=== PATIENT | female | born 1980 | race African-American/Black ===

== ENCOUNTER 2022-03-16 19:34 | Emergency (ER) | payer OTHER, SELFPAY ==
--- NOTE | ~2022-03-16 | XR_ITS ---
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 RESULT: Lines, tubes, and devices: Cholecystectomy clips. Lungs and pleura: Low lung volumes, with crowding, particularly in the lateral view. No focal consol idation, effusion, or pneumothorax. Cardiomediastinal silhouette: Unremarkable. Other: No acute osseous or upper abdominal finding. IMPRESSION: No acute cardiopulmonary process. Reviewed, dictated and finalized at location K. 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
[2022-03-16 17:37] VITALS: BP 144/84; PULSE 86; RESP 16; TEMP 36.6; O2SAT 98
--- NOTE | 2022-03-16 17:37 | ECG_ITS ---
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
[2022-03-16 17:56] LABS: Basophils Percent Auto 0.5 % (0.2-1.2); Eosinophils Absolute Auto 0.1 K/mm3 (0-0.3); Eosinophils Percent Auto 1.7 % (0-4.4); Hematocrit 38.4 % (37.0-47.0); Hemoglobin 11.8 g/dL (12.0-15.0); Immature Granulocyte Absolute 0.01 K/mm3 (0.00-0.031); Immature Granulocyte Percent A 0.1 % (0-0.5); Lymphocytes Absolute Auto 3.51 K/mm3 (0.9-3.2); Mean Corpuscular HGB Conc 30.7 g/dl (32-36); Mean Corpuscular Hemoglobin 27.9 pg (26-34); Mean Corpuscular Volume 90.8 fl (80-100); Mean Platelet Volume 10.7 fl (7.4-10.4); Monocytes Absolute Auto 0.5 K/mm3 (0.1-0.6); Monocytes Percent Auto 5.4 % (2.6-8.5); Neutrophils Absolute Auto 4.2 K/mm3 (1.3-6.7); Neutrophils Percent Auto 50.3 % (45.5-73.1); Platelet Count Result 320 k/mm3 (150-375); Red Blood Count 4.23 M/mm3 (4.2-5.4); Red Cell Distribution Width 14.9 % (11.5-14.5); White Blood Count 8.4 K/mm3 (4.5-10.0)
[2022-03-16 18:07] LABS: Alanine Aminotransferase 22 U/L (6-35); Albumin Level 4.6 g/dL (3.5-5.1); Alkaline Phosphatase 96 U/L (38-126); Anion Gap 8 mmol/L (8-16); Aspartate Amino Transferase 27 U/L (14-36); Bilirubin,Total 0.3 mg/dL (0.2-1.3); Blood Urea Nitrogen 10 mg/dL (7-17); Calcium 9.1 mg/dL (8.4-10.2); Carbon Dioxide 27 mmol/L (22-30); Chloride 103 mmol/L (98-107); Estimated CRCL calculation 84 ml/min; Estimated Glomerular Filt Rate > 60; Glucose 98 mg/dL (65-110); Lipase 69 U/L (23-300); Sodium 138 mmol/L (137-145)
[2022-03-16 18:09] LABS: INR 1.1; Prothrombin Time 13.4 Seconds (11.1-14.7)
[2022-03-16 18:10] LABS: Partial Thromboplastin Time 27.2 SECONDS (22.3-36.8)
[2022-03-16 18:19] LABS: Troponin I < 0.012 ng/mL (0.000-0.034)
--- NOTE | 2022-03-16 18:48 | ED.CHESTPAIN ---
HPI - Chest Pain General Chief Complaint: Chest Pain Stated Complaint: CP History of Present Illness HPI narrative: Patient is a 41-year-old female with a history of hypertension presenting with chest pain. Patient states that for the last several days she has had left-sided chest pain. States that it became worse today while she was at work. Associated with shortness of breath. States that it hurts worse to take a big breath. States she has never had pain like this before. No lightheadedness or leg swelling. No fevers or chills, cough, headache, abdominal pain, nausea or vomiting, back pain. Related Data Allergies Allergy/AdvReac Type Severity Reaction Status Date / Time No Known Allergies Allergy Verified 03/16/22 18:55 Review of Systems Review of Systems: All systems reviewed & are unremarkable except as noted in HPI and below Exam Narrative: GENERAL: Well-appearing, well-nourished, and in no acute distress. HEAD: Normocephalic, atraumatic. EYES: PERRLA and EOMI. ENT: Nares clear, no rhinorrhea or epistaxis. Mucous membranes moist. NECK: Supple. CHEST: Clear to auscultation. No respiratory distress. HEART: Regular rate and rhythm. No murmur heard. + Left chest wall tenderness ABDOMEN: Soft, nontender, nondistended, normal active bowel sounds. EXTREMITIES: Normal range of motion. No edema. SKIN: Warm, dry, no rash. NEURO: No focal deficits. Alert and oriented x3. PSYCH: Normal mood and affect. Course Vital Signs Vital signs: Vital Signs Temperature 97.8 F 03/16/22 17:37 Pulse Rate 86 03/16/22 17:37 Respiratory Rate 16 03/16/22 17:37 Blood Pressure 144/84 H 03/16/22 17:37 Pulse Oximetry 98 03/16/22 17:37 Oxygen Delivery Room Air 03/16/22 17:37 Temperature 98.4 F 03/16/22 21:20 Pulse Rate 83 03/16/22 21:20 Respiratory Rate 16 03/16/22 21:20 Blood Pressure 140/95 H 03/16/22 21:20 Pulse Oximetry 100 03/16/22 21:20 Oxygen Delivery Room Air 03/16/22 17:37 MDM - Chest Pain MDM Narrative Medical decision making narrative: Patient is a 41-year-old female presenting with chest pain for several days. Patient is hypertensive, otherwise vitals are within normal limits. EKG per my interpretation shows normal sinus rhythm, left axis deviation, no ST elevations or depressions. No priors for comparison. Blood work is unremarkable. Troponins undetectable by 2. Chest x-ray without acute abnormalities per my review. D-dimer is within normal limits. Patient reports improvement in her symptoms following IV Tylenol and Toradol. Given the improvement in her symptoms following anti-inflammatories and the reproducibility of the pain, I suspect musculoskeletal pain versus costochondritis. Discussed the reassuring work-up. Advised that she follow-up with her PCP. Appropriate return precautions given. Patient voiced understanding and is agreeable with plan. Discharged in stable condition. Differential Diagnosis Differential diagnosis: Likely pneumothorax, stable angina, unstable angina pectoris, atypical chest pain, st elevation myocardial infarction, costochondritis and chest pain Lab Data 03/16/22 17:49 03/16/22 17:49 Labs: Lab Results 03/16/22 03/16/22 03/16/22 Range/Units 17:49 17:49 17:49 WBC 8.4 (4.5-10.0) K/mm3 RBC 4.23 (4.2-5.4) M/mm3 Hgb 11.8 L (12.0-15.0) g/dL Hct 38.4 (37.0-47.0) % MCV 90.8 (80-100) fl MCH 27.9 (26-34) pg MCHC 30.7 L (32-36) g/dl RDW 14.9 H (11.5-14.5) % Plt Count 320 (150-375) k/mm3 MPV 10.7 H (7.4-10.4) fl Immature Gran % (Auto) 0.1 (0-0.5) % Neut % (Auto) 50.3 (45.5-73.1) % Lymph % (Auto) 42.0 (18.3-44.2) % [place] % (Auto) 5.4 (2.6-8.5) % Eos % (Auto) 1.7 (0-4.4) % Baso % (Auto) 0.5 (0.2-1.2) % Lymph # (Auto) 3.51 H (0.9-3.2) K/mm3 [place] # (Auto) 0.5 (0.1-0.6) K/mm3 Eos # (Auto) 0.1 (0-0.3) K/mm3 Baso # (Auto) 0.0 (0.0
[2022-03-16] MEDS: SODIUM CHLORIDE 0.9% IV 1,000 ML 999 ML IV CONT (19:36)
[2022-03-16] MEDS: ONDANSETRON INJ 4 MG/2 ML VIAL IV PUSH (19:36)
[2022-03-16] MEDS: KETOROLAC 15 MG/ML VIAL (*BKC) IV PUSH (19:41)
[2022-03-16 21:02] LABS: Troponin I < 0.012 ng/mL (0.000-0.034)
[2022-03-16 21:20] VITALS: BP 140/95; PULSE 83; RESP 16; TEMP 36.9; O2SAT 100
== END 2022-03-16 21:22 | disposition home or self-care (01) ==
PROVIDERS: Emergency Provider Emergency Medicine
DX: R07.9 Chest pain, unspecified (principal); I10 Essential (primary) hypertension; R94.31 Abnormal electrocardiogram [ECG] [EKG]
CPT/HCPCS: 36415; 71046; 80053; 83690; 84484; 85025; 85380; 85610; 85730; 93005; 96365; 96375; 99284; J0131; J1885; J2405; J7030